=== PATIENT | female | born 1965 | race Two or more races ===

== ENCOUNTER 2016-06-09 09:03 | Emergency (ER) | payer BC ==
[~2016-06-09] VITALS: Ht 165.1 cm; Wt 111.1 kg
[2016-06-09 09:25] VITALS: BP 177/82
--- NOTE | 2016-06-09 09:46 | PHYS DOC ---
Past Medical History Past Medical History: Diabetes-Type II, High Cholesterol, Hypertension Past Surgical History: Tubal ligation Alcohol Use: None Drug Use: None Adult General Chief Complaint Chief Complaint: URINARY FREQUENCY HPI HPI Patient is a 51 year old female, with a history of diabetes, comes emergency room today with complaint of progressive "yeast infection" and dysuria over the past week. Patient states that she does get frequent infections. She denies antibiotic use within the past 30 days. She denies flank pain, pelvic pain, fevers, nausea or vomiting. She denies concerns for sexual transmitted diseases at this time. Review of Systems Review of Systems Constitutional: Denies fever or chills [] Eyes: Denies change in visual acuity, redness, or eye pain [] HENT: Denies nasal congestion or sore throat [] Respiratory: Denies cough or shortness of breath [] Cardiovascular: No additional information not addressed in HPI [] GI: Denies abdominal pain, nausea, vomiting, bloody stools or diarrhea [] : Denies dysuria or hematuria [] Musculoskeletal: Denies back pain or joint pain [] Integument: Denies rash or skin lesions [] Neurologic: Denies headache, focal weakness or sensory changes [] Endocrine: Denies polyuria or polydipsia [] Allergies Allergies Allergies Coded Allergies Type Severity Reaction Last Updated Verified No Known Drug Allergies 06/09/16 No Physical Exam Physical Exam Constitutional: Well developed, well nourished, no acute distress, non-toxic appearance. HENT: Normocephalic, atraumatic, bilateral external ears normal, oropharynx moist, no oral exudates, nose normal. [] Eyes: PERRLA, EOMI, conjunctiva normal, no discharge. [] Neck: Normal range of motion, no tenderness, supple, no stridor. [] Cardiovascular:Heart rate regular rhythm, no murmur [] Lungs & Thorax: Bilateral breath sounds clear to auscultation [] Abdomen: Bowel sounds normal, soft, no tenderness, no masses, no pulsatile masses. Skin: Warm, dry, no erythema, no rash. Back: No tenderness, no CVA tenderness. [] Extremities: No tenderness, no cyanosis, no clubbing, ROM intact, no edema. [] Neurologic: Alert and oriented X 3, normal motor function, normal sensory function, no focal deficits noted. [] Psychologic: Affect normal, judgement normal, mood normal. [] Current Patient Data Vital Signs Vital Signs Date Time Temp Pulse Resp B/P Pulse Ox O2 Delivery O2 Flow Rate FiO2 06/09/16 09:25 98.4 87 16 97 Room Air 98.4 Lab Values Laboratory Tests Test 06/09/16 09:40 Urine Collection Type Unknown Urine Color Yellow Urine Clarity Clear Urine pH 7.0 Urine Specific [place] 1.025 Urine Protein 30mg/dL (NEG-TRACE) Urine Glucose (UA) >=1000mg/dL (NEG) Urine Ketones (Stick) Negativemg/dL (NEG) Urine Blood Negative (NEG) Urine Nitrite Negative (NEG) Urine Bilirubin Negative (NEG) Urine Urobilinogen Dipstick 0.2mg/dL (0.2 mg/dL) Urine Leukocyte Esterase Moderate (NEG) Urine RBC 3-5/HPF (0-2) Urine WBC 20-40/HPF (0-4) Urine Squamous Epithelial Cells Mod/LPF Urine Bacteria Moderate/HPF (0-FEW) Urine Mucus Slight/LPF EKG EKG [] Radiology/Procedures Radiology/Procedures [] Course & Med Decision Making Course & Med Decision Making Pertinent Labs and Imaging studies reviewed. (See chart for details) [] Dragon Disclaimer Dragon Disclaimer This electronic medical record was generated, in whole or in part, using a voice recognition dictation system. Departure Departure Impression: Primary Impression: Urinary tract infection Additional Impression: Yeast vaginitis Disposition: 01 HOME, SELF-CARE Condition: GOOD Referrals: KATHARINE BROWN WIRE GALVANIZER (PCP) Patient Instructions: Diabetes, FAQs, Urinary Tract Infection, Ihar-js-Ivop, Vaginitis, Yycl-[id number] Additional Instructions: 1. Take the medication as prescribed. 2. Review the discharge instructions provided for self-care and reasons to return to the emergency department. 3. It is very important for you to establish a primary care doctor. Please use the pamphlet provided for assistance in finding one. Ideally, you should follow up with a new primary care doctor within the next 7-10 days. Scripts Phenazopyridine Hcl (Pyridium)200 Mg [id number] Mg PO TID dysuria #6 TAB Prov:ELVER RANDOLPH 06/09/16 Fluconazole (Diflucan)150 Mg Tablet1 Tab PO ONCE #1 TAB Ref 1 Prov:ELVER RANDOLPH 06/09/16 Nitrofurantoin Macrocrystal (Nitrofurantoin)100 Mg Capsule1 Cap PO BID #20 CAP Prov:ELVER RANDOLPH 06/09/16 Problem Qualifiers ELVER RANDOLPH Jun 09, 2016 09:46
[2016-06-09 09:52] LABS: BILIRUBIN,URINE NEGATIVE (NEG); GLUCOSE,URINE >=1000 mg/dL (NEG); NITRITE,URINE NEGATIVE (NEG); PROTEIN,URINE 30 mg/dL (NEG-TRACE); UROBILINOGEN,URINE 0.2 mg/dL (0.2 mg/dL)
[2016-06-09 10:01] LABS: BACTERIA,URINE MODERATE /HPF (0-FEW); SQUAMOUS EPITHELIAL CELL,UR MOD /LPF; WBC,URINE 20-40 /HPF (0-4)
[2016-06-09] MEDS ORDERED: PHEN-318 PO (10:24)
[2016-06-09] MEDS ORDERED: NITR100C PO (10:24)
[2016-06-09] MEDS ORDERED: FLUC150T PO (10:24)
== END 2016-06-09 10:30 | disposition home or self-care (01) ==
LOC: ER 09:03
DX: N39.0 Urinary tract infection, site not specified (principal); B37.3 Candidiasis of vulva and vagina; E11.9 Type 2 diabetes mellitus without complications; E78.00 Pure hypercholesterolemia, unspecified; I10 Essential (primary) hypertension
CPT/HCPCS: 81001; 87086; 99284

== ENCOUNTER → 2020-01-23 | Outpatient (CLI) | payer BC ==
[~2020-01-23] MED LIST: AMLO-186 PO; FLUC150T PO; INSU100C4 SQ; METF10007 PO; METO-239 PO; NITR100C PO; OLME5TAB4 PO; OMEP20TA8 PO; OXYB5TAB10 PO; PHEN-318 PO; TOPI25CA3 PO
== END ==
LOC: LAB 15:02
PROVIDERS: ATTEND Specialist
DX: Z01.812 Encounter for preprocedural laboratory examination (principal); Z20.828 Contact with and (suspected) exposure to other viral communicable diseases; N63.0 Unspecified lump in unspecified breast
CPT/HCPCS: U0003

== ENCOUNTER 2020-01-27 07:12 | Day surgery (SDC) | payer BC ==
[~2020-01-27] VITALS: Ht 162.6 cm; Wt 108.9 kg
--- NOTE | 2020-01-27 06:54 | PREOP HP ---
DATE OF SERVICE: HISTORY OF PRESENT ILLNESS: The patient is referred by Dr. Chavez because of the left breast mass. She has not noticed anything in her breast, but had a mammogram and then a sonogram, which showed a solid mass of the left breast at the 3 o'clock position about an inch or so from the areola margin. She otherwise has no problem with the breast whatsoever and has never had problems. PAST MEDICAL HISTORY: Shows normal childhood diseases. MEDICATIONS: She does take medication for hypertension and takes insulin and pills for diabetes. She also takes some medicine for depression and sometimes she takes sleeping medicine. ALLERGIES: SHE IS ALLERGIC TO SOME TYPE OF HIGH BLOOD PRESSURE MEDICINE, BUT SHE DOES NOT KNOW WHAT IT IS, IT APPARENTLY MADE HER COUGH. SHE, OTHERWISE, HAS NO ALLERGIES. FAMILY HISTORY: Noncontributory. SOCIAL HISTORY: Shows that she does not use illicit drugs, does not smoke and only drinks occasionally and not enough to be inebriated. She does this only socially. REVIEW OF SYSTEMS: Basically negative. PHYSICAL EXAMINATION: GENERAL: Shows an obese female in no acute distress. HEAD, EYES, NOSE AND THROAT: Grossly normal. CHEST: Clear bilaterally to auscultation. HEART: Negative with a rate of 72 beats per minute and was regular. She did have at the aortic area about a 2/6 systolic murmur, which was mid systolic. No other abnormalities were noted. BREASTS: Examination at both axillary areas was negative. The right breast was negative and the left breast did have about 1 cm lesion, which could be palpated lateral to the left breast areolar margin at the 3 o'clock position. I assume this is what is seen on sonogram, but we will confirm this before anything is done. ABDOMEN: Grossly negative. EXTREMITIES: Grossly normal. PELVIC: Not done. RECTAL: Not done. IMPRESSION: 1. Hypertension. 2. Diabetes. 3. Left breast mass. CASH DAWKINS MD DR: MEME/ricci JOB#: [id number] / [id number]
[~2020-01-27 07:12] MED LIST changes: -AMLO-186 PO; +HYDROmorphone 2 MG/ML VIAL IV PRN; -INSU100C4 SQ; +IV RINGERS,LACTATED 1000ML 1,000 ML IV SCH; +LIDOCAINE 1% PF 2 ML VIAL. ID PRN; -METF10007 PO; -METO-239 PO; +MORPHINE SULFATE 2 MG/ML VIAL. IV PRN; -OLME5TAB4 PO; -OMEP20TA8 PO; +ONDANSETRON PF 4 MG/2 ML VIAL. IV PRN; -OXYB5TAB10 PO; +PROCHLORPERAZINE 10 MG/2 ML VIAL. IV PRN; -TOPI25CA3 PO; +ceFAZolin SODIUM IV Push 1 GM VIAL. IVP PRN; +fentaNYL PF VIAL 100 MCG/2 ML VIAL IV PRN
[2020-01-27] MEDS ORDERED: AMLO-186 PO (07:42)
[2020-01-27] MEDS ORDERED: INSU100C4 SQ (07:42)
[2020-01-27] MEDS ORDERED: OXYB5TAB10 PO (07:42)
[2020-01-27] MEDS ORDERED: METO-239 PO (07:42)
[2020-01-27] MEDS ORDERED: METF10007 PO (07:42)
[2020-01-27] MEDS ORDERED: TOPI25CA3 PO (07:42)
[2020-01-27] MEDS ORDERED: OLME5TAB4 PO (07:42)
[2020-01-27] MEDS ORDERED: OMEP20TA8 PO (07:42)
[2020-01-27] MEDS ORDERED: INSULIN LISPRO 100 UNIT/ML 3ML VIAL for OP,RR ONLY. SQ PRN (08:00)
[2020-01-27 08:08] LABS: BASO % 1 % (0-3); EOS # 0.2 x10^3/uL (0.0-0.7); EOS % 4 % (0-3); HEMATOCRIT 37.7 % (36.0-47.0); HEMOGLOBIN 12.6 g/dL (12.0-15.5); LYMPH # 1.8 x10^3/uL (1.0-4.8); LYMPH % 37 % (24-48); MEAN CORPUSCULAR HEMOGLOBIN 29 pg (25-35); MEAN CORPUSCULAR HGB CONC 33 g/dL (31-37); MEAN CORPUSCULAR VOLUME 86 fL (79-100); MONO # 0.4 x10^3/uL (0.0-1.1); MONO % 8 % (0-9); NEUT # 2.5 x10^3/uL (1.8-7.7); NEUT % 52 % (31-73); PLATELET COUNT 251 x10^3/uL (140-400); RED CELL DISTRIBUTION WIDTH 14.5 % (11.5-14.5); WHITE BLOOD COUNT 4.9 x10^3/uL (4.0-11.0)
[2020-01-27 08:16] LABS: CALCIUM 9.3 mg/dL (8.5-10.1); GFR 57.8; POTASSIUM 3.8 mmol/L (3.5-5.1)
[2020-01-27 08:22] LABS: ALBUMIN 3.4 g/dL (3.4-5.0); ALBUMIN/GLOBULIN RATIO 0.9 (1.0-1.7); TOTAL BILIRUBIN 0.5 mg/dL (0.2-1.0); TOTAL PROTEIN 7.1 g/dL (6.4-8.2)
[2020-01-27] MEDS ORDERED: METHYLENE BLUE 0.5% 10ml AMPULE. ONE (08:39)
[2020-01-27] MEDS ORDERED: LIDOCAINE 2% PF 5 ML VIAL. ONE (09:03)
[2020-01-27] MEDS ORDERED: KETOROLAC 30 MG/ML VIAL. ONE (09:03)
[2020-01-27] MEDS ORDERED: SEVOFLURANE 61 TO 120 MINUTES. IH ONE (09:03)
[2020-01-27] MEDS ORDERED: PROPOFOL 10 MG/ML (20ML) VIAL. IV ONE (09:03)
[2020-01-27] MEDS ORDERED: ONDANSETRON PF 4 MG/2 ML VIAL. ONE (09:03)
[2020-01-27] MEDS ORDERED: DEXAMETHASONE SOD PHOS 4 MG/ML VIAL ONE (09:03)
--- NOTE | 2020-01-27 09:32 | PDOC ---
SURGICAL PROGRESS NOTE DATE: 01/27/20 TIME: 09:31 nO CHANGER IN DICTATED h&p Vital Signs Vital Signs Date Time Temp Pulse Resp B/P (MAP) Pulse Ox O2 Delivery O2 Flow Rate FiO2 01/27/20 07:47 97.3 62 147/74 99 97.3 01/27/20 07:44 20 Labs Laboratory Tests Test 01/27/20 07:55 White Blood Count 4.9 x10^3/uL (4.0-11.0) Red Blood Count 4.40 x10^6/uL (3.50-5.40) Hemoglobin 12.6 g/dL (12.0-15.5) Hematocrit 37.7 % (36.0-47.0) Mean Corpuscular Volume 86 fL (79-100) Mean Corpuscular Hemoglobin 29 pg (25-35) Mean Corpuscular Hemoglobin Concent 33 g/dL (31-37) Red Cell Distribution Width 14.5 % (11.5-14.5) Platelet Count 251 x10^3/uL (140-400) Neutrophils (%) (Auto) 52 % (31-73) Lymphocytes (%) (Auto) 37 % (24-48) Monocytes (%) (Auto) 8 % (0-9) Eosinophils (%) (Auto) 4 % (0-3) Basophils (%) (Auto) 1 % (0-3) Neutrophils # (Auto) 2.5 x10^3/uL (1.8-7.7) Lymphocytes # (Auto) 1.8 x10^3/uL (1.0-4.8) Monocytes # (Auto) 0.4 x10^3/uL (0.0-1.1) Eosinophils # (Auto) 0.2 x10^3/uL (0.0-0.7) Basophils # (Auto) 0.0 x10^3/uL (0.0-0.2) Prothrombin Time 12.0 SEC (11.7-14.0) Prothromb Time International Ratio 0.9 (0.8-1.1) Activated Partial Thromboplast Time 25 SEC (24-38) Sodium Level 141 mmol/L (136-145) Potassium Level 3.8 mmol/L (3.5-5.1) Chloride Level 103 mmol/L (98-107) Carbon Dioxide Level 29 mmol/L (21-32) Anion Gap 9 (6-14) Blood Urea Nitrogen 21 mg/dL (7-20) Creatinine 1.0 mg/dL (0.6-1.0) Estimated GFR (Cockcroft-Gault) 57.8 BUN/Creatinine Ratio 21 (6-20) Glucose Level 145 mg/dL (70-99) Calcium Level 9.3 mg/dL (8.5-10.1) Total Bilirubin 0.5 mg/dL (0.2-1.0) Aspartate Amino Transf (AST/SGOT) 14 U/L (15-37) Alanine Aminotransferase (ALT/SGPT) 24 U/L (14-59) Alkaline Phosphatase 65 U/L (46-116) Total Protein 7.1 g/dL (6.4-8.2) Albumin 3.4 g/dL (3.4-5.0) Albumin/Globulin Ratio 0.9 (1.0-1.7) Laboratory Tests Test 01/27/20 07:55 White Blood Count 4.9 x10^3/uL (4.0-11.0) Red Blood Count 4.40 x10^6/uL (3.50-5.40) Hemoglobin 12.6 g/dL (12.0-15.5) Hematocrit 37.7 % (36.0-47.0) Mean Corpuscular Volume 86 fL (79-100) Mean Corpuscular Hemoglobin 29 pg (25-35) Mean Corpuscular Hemoglobin Concent 33 g/dL (31-37) Red Cell Distribution Width 14.5 % (11.5-14.5) Platelet Count 251 x10^3/uL (140-400) Neutrophils (%) (Auto) 52 % (31-73) Lymphocytes (%) (Auto) 37 % (24-48) Monocytes (%) (Auto) 8 % (0-9) Eosinophils (%) (Auto) 4 % (0-3) Basophils (%) (Auto) 1 % (0-3) Neutrophils # (Auto) 2.5 x10^3/uL (1.8-7.7) Lymphocytes # (Auto) 1.8 x10^3/uL (1.0-4.8) Monocytes # (Auto) 0.4 x10^3/uL (0.0-1.1) Eosinophils # (Auto) 0.2 x10^3/uL (0.0-0.7) Basophils # (Auto) 0.0 x10^3/uL (0.0-0.2) Prothrombin Time 12.0 SEC (11.7-14.0) Prothromb Time International Ratio 0.9 (0.8-1.1) Activated Partial Thromboplast Time 25 SEC (24-38) Sodium Level 141 mmol/L (136-145) Potassium Level 3.8 mmol/L (3.5-5.1) Chloride Level 103 mmol/L (98-107) Carbon Dioxide Level 29 mmol/L (21-32) Anion Gap 9 (6-14) Blood Urea Nitrogen 21 mg/dL (7-20) Creatinine 1.0 mg/dL (0.6-1.0) Estimated GFR (Cockcroft-Gault) 57.8 BUN/Creatinine Ratio 21 (6-20) Glucose Level 145 mg/dL (70-99) Calcium Level 9.3 mg/dL (8.5-10.1) Total Bilirubin 0.5 mg/dL (0.2-1.0) Aspartate Amino Transf (AST/SGOT) 14 U/L (15-37) Alanine Aminotransferase (ALT/SGPT) 24 U/L (14-59) Alkaline Phosphatase 65 U/L (46-116) Total Protein 7.1 g/dL (6.4-8.2) Albumin 3.4 g/dL (3.4-5.0) Albumin/Globulin Ratio 0.9 (1.0-1.7) Justicifation of Admission Dx: Justifications for Admission: Justification of Admission Dx: Yes CASH DAWKINS MD Jan 27, 2020 09:32
--- NOTE | 2020-01-27 09:35 | PDOC ---
SURGICAL PROGRESS NOTE DATE: 01/27/20 TIME: 09:32 Op Note: Surgeon.....................................Dawkins Pre op dig..................................bert left breast Post op diag...............................mass left breast Anesthesi..................................general Procedure.................................excision left breast mass Blood loss..................................4cc Fluids.......................................see anesthesia sheet Drains......................................none Condition..................................satisfactory Vital Signs Vital Signs Date Time Temp Pulse Resp B/P (MAP) Pulse Ox O2 Delivery O2 Flow Rate FiO2 01/27/20 07:47 97.3 62 147/74 99 97.3 01/27/20 07:44 20 Labs Laboratory Tests Test 01/27/20 07:55 White Blood Count 4.9 x10^3/uL (4.0-11.0) Red Blood Count 4.40 x10^6/uL (3.50-5.40) Hemoglobin 12.6 g/dL (12.0-15.5) Hematocrit 37.7 % (36.0-47.0) Mean Corpuscular Volume 86 fL (79-100) Mean Corpuscular Hemoglobin 29 pg (25-35) Mean Corpuscular Hemoglobin Concent 33 g/dL (31-37) Red Cell Distribution Width 14.5 % (11.5-14.5) Platelet Count 251 x10^3/uL (140-400) Neutrophils (%) (Auto) 52 % (31-73) Lymphocytes (%) (Auto) 37 % (24-48) Monocytes (%) (Auto) 8 % (0-9) Eosinophils (%) (Auto) 4 % (0-3) Basophils (%) (Auto) 1 % (0-3) Neutrophils # (Auto) 2.5 x10^3/uL (1.8-7.7) Lymphocytes # (Auto) 1.8 x10^3/uL (1.0-4.8) Monocytes # (Auto) 0.4 x10^3/uL (0.0-1.1) Eosinophils # (Auto) 0.2 x10^3/uL (0.0-0.7) Basophils # (Auto) 0.0 x10^3/uL (0.0-0.2) Prothrombin Time 12.0 SEC (11.7-14.0) Prothromb Time International Ratio 0.9 (0.8-1.1) Activated Partial Thromboplast Time 25 SEC (24-38) Sodium Level 141 mmol/L (136-145) Potassium Level 3.8 mmol/L (3.5-5.1) Chloride Level 103 mmol/L (98-107) Carbon Dioxide Level 29 mmol/L (21-32) Anion Gap 9 (6-14) Blood Urea Nitrogen 21 mg/dL (7-20) Creatinine 1.0 mg/dL (0.6-1.0) Estimated GFR (Cockcroft-Gault) 57.8 BUN/Creatinine Ratio 21 (6-20) Glucose Level 145 mg/dL (70-99) Calcium Level 9.3 mg/dL (8.5-10.1) Total Bilirubin 0.5 mg/dL (0.2-1.0) Aspartate Amino Transf (AST/SGOT) 14 U/L (15-37) Alanine Aminotransferase (ALT/SGPT) 24 U/L (14-59) Alkaline Phosphatase 65 U/L (46-116) Total Protein 7.1 g/dL (6.4-8.2) Albumin 3.4 g/dL (3.4-5.0) Albumin/Globulin Ratio 0.9 (1.0-1.7) Laboratory Tests Test 01/27/20 07:55 White Blood Count 4.9 x10^3/uL (4.0-11.0) Red Blood Count 4.40 x10^6/uL (3.50-5.40) Hemoglobin 12.6 g/dL (12.0-15.5) Hematocrit 37.7 % (36.0-47.0) Mean Corpuscular Volume 86 fL (79-100) Mean Corpuscular Hemoglobin 29 pg (25-35) Mean Corpuscular Hemoglobin Concent 33 g/dL (31-37) Red Cell Distribution Width 14.5 % (11.5-14.5) Platelet Count 251 x10^3/uL (140-400) Neutrophils (%) (Auto) 52 % (31-73) Lymphocytes (%) (Auto) 37 % (24-48) Monocytes (%) (Auto) 8 % (0-9) Eosinophils (%) (Auto) 4 % (0-3) Basophils (%) (Auto) 1 % (0-3) Neutrophils # (Auto) 2.5 x10^3/uL (1.8-7.7) Lymphocytes # (Auto) 1.8 x10^3/uL (1.0-4.8) Monocytes # (Auto) 0.4 x10^3/uL (0.0-1.1) Eosinophils # (Auto) 0.2 x10^3/uL (0.0-0.7) Basophils # (Auto) 0.0 x10^3/uL (0.0-0.2) Prothrombin Time 12.0 SEC (11.7-14.0) Prothromb Time International Ratio 0.9 (0.8-1.1) Activated Partial Thromboplast Time 25 SEC (24-38) Sodium Level 141 mmol/L (136-145) Potassium Level 3.8 mmol/L (3.5-5.1) Chloride Level 103 mmol/L (98-107) Carbon Dioxide Level 29 mmol/L (21-32) Anion Gap 9 (6-14) Blood Urea Nitrogen 21 mg/dL (7-20) Creatinine 1.0 mg/dL (0.6-1.0) Estimated GFR (Cockcroft-Gault) 57.8 BUN/Creatinine Ratio 21 (6-20) Glucose Level 145 mg/dL (70-99) Calcium Level 9.3 mg/dL (8.5-10.1) Total Bilirubin 0.5 mg/dL (0.2-1.0) Aspartate Amino Transf (AST/SGOT) 14 U/L (15-37) Alanine Aminotransferase (ALT/SGPT) 24 U/L (14-59) Alkaline Phosphatase 65 U/L (46-116) Total Protein 7.1 g/dL (6.4-8.2) Albumin 3.4 g/dL (3.4-5.0) Albumin/Globulin Ratio 0.9 (1.0-1.7) Justicifation of Admission Dx: Justifications for Admission: Justification of Admission Dx: Yes CASH DAWKINS MD Jan 27, 2020 09:35
[2020-01-27] MEDS ORDERED: ePHEDrine PF IN SALINE 50 MG/10 ML SYRINGE. IV ONE (09:48)
--- NOTE | 2020-01-27 10:40 | DISCH ---
DISCHARGE INSTRUCTIONS Condition on Discharge Condition on Discharge: Stable Activity After Discharge Activity Instructions for Disc: No restrictions Diet after Discharge Additional Diet Restrictions: as pre op Wound Incision Care Other wound/incision instructi: change dressin prn. May leave off after 72 hours. Follow-Up Follow up with: Call and make appt to see me in 14 days CASH DAWKINS MD Jan 27, 2020 10:39
[2020-01-27] MEDS ORDERED: fentaNYL PF VIAL 100 MCG/2 ML VIAL ONE (10:51)
[2020-01-27] MEDS ORDERED: hydrALAZINE 20 MG/ML VIAL. ONE (11:08)
[2020-01-27] MEDS ORDERED: hydrALAZINE 20 MG/ML VIAL. IVP ONE (11:15)
[2020-01-27] MEDS ORDERED: hydrALAZINE 20 MG/ML VIAL. IVP PRN (11:15)
[2020-01-27 11:30] VITALS: BP 161/91
--- NOTE | 2020-01-27 15:42 | OP ---
DATE OF SURGERY: 01/27/2020 SURGEON: Robert Dawkins MD PREOPERATIVE DIAGNOSIS: Mass of the left breast. POSTOPERATIVE DIAGNOSIS: Mass of the left breast. ANESTHESIA: General. PROCEDURE: Excision mass, left breast. TECHNIQUE: Under general anesthesia, the patient was properly prepped and draped in routine fashion. The lesion being at about the 3 o'clock position at about an inch from the areola margin, we made a circumareolar incision in that area at the lateral portion of the left breast. We did this with a 15 blade and went through the skin and into the subcutaneous. Using Sharath retractors and then Best's, we slowly got down to the mass. The mass was about a centimeter in size and tissue around it was pulled up and using cautery. We simply went completely around the lesion taken tissue, breast tissue and fatty tissue around it and slowly excised it. There was one brisk bleeder, which was cauterized and then suture ligated with 4-0 Vicryl. The specimen was sent to the lab. The resultant defect was inspected. There was no further bleeding. The deeper tissues were approximated with interrupted 4-0 Vicryl and the skin was closed using a subcuticular 5-0 Vicryl. Sterile dressing was applied and the procedure was terminated. The blood loss during the procedure was less than 3 mL. Fluids given can be obtained from the anesthesia sheet. No drains were used. Condition of the patient is satisfactory as she has returned to the recovery room. ROBERT DAWKINS MD DR: MEME/nts JOB#: [id number] / [id number]
--- NOTE | 2020-01-28 09:23 | RAD ---
Examination: BREAST LEFT History: Reason: DR SUTTON MARKED PALPABLE LT BRESAT MASS FOR SURGICAL EXCISION / Comparison/Correlation: 01/14/2020 Limited left breast ultrasound examination performed at diagnostic imaging centers Findings: Limited left breast ultrasound exam was performed. At the left breast 3:00 region 5 cm from the nipple, there is a small heterogeneously hypoechoic mass lesion which is unchanged compared to the previous exam. The reported palpable abnormality the patient is experiencing at the left breast 3:00 region corresponds to this finding upon physical exam and myself. Impression: No change in the patient's known mass lesion at the left breast 3:00 region. This mass corresponds to the palpable abnormality. Surgical excision was scheduled immediately after this exam was performed. Electronically signed by: Dami Sutton MD (01/28/2020 9:20 AM) [id number]
--- NOTE | 2020-01-29 19:11 | PATHOLOGY ---
[facility] Accession Number: [id number] . 01 Material submitted: . breast - LEFT BREAST MASS. Modifiers: left . 01 Clinical history: . LEFT BREAST MASS . 02 Diagnosis: Breast tissue, left breast mass excision: - Invasive ductal carcinoma, histologic grade 2. See comment. - Ductal carcinoma in situ, high-grade, cribriform type, focal. (JPM:beto; 01/29/2020) QMS 01/29/2020 1821 Local . 02 Comment: Sections of the left breast mass excision reveal an invasive ductal carcinoma. The tumor shows moderate tubule formation. Tumor cells show moderate to marked nuclear pleomorphism. There are foci within the tumor showing 2-3 mitotic figures per high power field. Adjacent to the tumor, there is focal high grade ductal carcinoma in situ of cribriform type. There are calcifications present within the DCIS and focally within invasive carcinoma. The invasive tumor measures up to 1.1 cm in greatest dimension on the glass slide. There is no lymphovascular tumor invasion. Tumor focally is very close (less than 1 mm) to an inked margin of excision. Breast prognostic studies will be obtained on block A3, the results of which will be reported separately. The case is also examined by Dr. Weiss, who concurs with the diagnosis. (JPM:beto; 01/29/2020) . 02 Electronically signed: . Jozef Cardona MD, Pathologist NPI- [id number] . 01 Gross description: . Received in formalin labeled "Vargas, Cierra, left breast mass" is a portion of yellow-trevino lobulated fibroadipose tissue weighing 2 g and measuring 2.6 x 2.1 x 1.2 cm. The specimen is received unoriented. The external surface is inked entirely black. The specimen is serially sectioned to reveal a trevino-white firm mass measuring 1.2 x 0.9 x 0.9 cm. The mass abuts the inked margin. The uninvolved tissue is yellow-trevino and lobulated. A biopsy site is not grossly identified. The specimen is submitted entirely as follows: A1 first slice, perpendicular sections A2-A4 middle of specimen A5 last slice, perpendicular sections The specimen is removed from the patient at 1008 and placed in formalin at 1009 on 01/27/2020. The specimen is removed from formalin at 1850 on 01/28/2020. ([facility]; 01/28/2020) [facility] 01/28/2020 0825 Local . 02 Pathologist provided ICD-10: C50.912, D05.12 . 02 CPT . 233198 Specimen Comment: A courtesy copy of this report has been sent to [phone], [phone] Specimen Comment: [id number] Specimen Comment: Report sent to / DR GARZA Performed at: 01 [facility] [address] [facility] [address], [place] [id number] MD Bhavin Weiss MD Phone: [phone] Performed at: 02 [facility] [address] [place], [place] [id number] MD Jozef Cardona MD Phone: [phone]
== END 2020-01-27 12:00 | disposition home or self-care (01) ==
LOC: US 07:12
PROVIDERS: ATTEND Specialist
DX: C50.412 Malignant neoplasm of upper-outer quadrant of left female breast (principal); Z79.01 Long term (current) use of anticoagulants; I10 Essential (primary) hypertension; E11.9 Type 2 diabetes mellitus without complications; F32.9 Major depressive disorder, single episode, unspecified; Z88.8 Allergy status to other drugs, medicaments and biological substances; Z79.899 Other long term (current) drug therapy; Z79.84 Long term (current) use of oral hypoglycemic drugs
CPT/HCPCS: 19120; 36415; 76641; 80053; 82962; 85025; 85610; 85730; A7015; J0360; J0690; J1100; J1885; J2405; J2704; J3010; J7120; Q9968

== ENCOUNTER → 2020-02-25 | Outpatient (CLI) | payer BC ==
[2020-01-27 11:30] VITALS: BP 161/91
[~2020-02-25] MED LIST changes: +AMLO-186 PO; -HYDROmorphone 2 MG/ML VIAL IV PRN; +INSU100C4 SQ; -IV RINGERS,LACTATED 1000ML 1,000 ML IV SCH; -LIDOCAINE 1% PF 2 ML VIAL. ID PRN; +METF10007 PO; +METO-239 PO; -MORPHINE SULFATE 2 MG/ML VIAL. IV PRN; +OLME5TAB4 PO; +OMEP20TA8 PO; -ONDANSETRON PF 4 MG/2 ML VIAL. IV PRN; +OXYB5TAB10 PO; -PROCHLORPERAZINE 10 MG/2 ML VIAL. IV PRN; +TOPI25CA3 PO; +TRAZ-118 PO; -ceFAZolin SODIUM IV Push 1 GM VIAL. IVP PRN; -fentaNYL PF VIAL 100 MCG/2 ML VIAL IV PRN
[2020-02-25 11:35] LABS: BASO # 0.1 x10^3/uL (0.0-0.2); BASO % 1 % (0-3); EOS # 1.2 x10^3/uL (0.0-0.7); EOS % 17 % (0-3); HEMATOCRIT 38.5 % (36.0-47.0); HEMOGLOBIN 13.2 g/dL (12.0-15.5); LYMPH # 1.8 x10^3/uL (1.0-4.8); LYMPH % 26 % (24-48); MEAN CORPUSCULAR HEMOGLOBIN 29 pg (25-35); MEAN CORPUSCULAR HGB CONC 34 g/dL (31-37); MEAN CORPUSCULAR VOLUME 85 fL (79-100); MONO # 0.4 x10^3/uL (0.0-1.1); MONO % 6 % (0-9); NEUT # 3.5 x10^3/uL (1.8-7.7); NEUT % 51 % (31-73); PLATELET COUNT 300 x10^3/uL (140-400); RED BLOOD COUNT 4.54 x10^6/uL (3.50-5.40); RED CELL DISTRIBUTION WIDTH 14.9 % (11.5-14.5); WHITE BLOOD COUNT 6.9 x10^3/uL (4.0-11.0)
[2020-02-25 11:40] LABS: ALBUMIN 3.4 g/dL (3.4-5.0); ALBUMIN/GLOBULIN RATIO 0.9 (1.0-1.7); CALCIUM 8.9 mg/dL (8.5-10.1); CREATININE 0.9 mg/dL (0.6-1.0); POTASSIUM 3.9 mmol/L (3.5-5.1); TOTAL BILIRUBIN 0.6 mg/dL (0.2-1.0); TOTAL PROTEIN 7.2 g/dL (6.4-8.2)
[2020-02-25 11:46] LABS: PROTHROMBIN TIME PATIENT 12.7 SEC (11.7-14.0)
[2020-02-25 12:49] LABS: % ATYL 4 % (0-0); % BANDS 12 % (0-9); % BASOS 1 % (0-3); % EOS 15 % (0-5); % MONOS 6 % (0-10)
[2020-02-25 12:50] LABS: % LYMPHS 30 % (24-48); % SEGS 32 % (35-66); PLT ESTIMATE ADEQUATE (ADEQUATE)
[2020-02-25 12:52] LABS: ANISOCYTOSIS SLIGHT
== END ==
LOC: SURGPAT 10:53
PROVIDERS: ATTEND Specialist
DX: Z01.812 Encounter for preprocedural laboratory examination (principal); N63.0 Unspecified lump in unspecified breast; R79.89 Other specified abnormal findings of blood chemistry; Z20.828 Contact with and (suspected) exposure to other viral communicable diseases
CPT/HCPCS: 80053; 85007; 85025; 85610; U0003

== ENCOUNTER 2020-03-01 07:02 | Day surgery (SDC) | payer BC ==
[~2020-03-01 07:02] MED LIST changes: +HYDROmorphone 2 MG/ML VIAL IV PRN; +IV RINGERS,LACTATED 1000ML 1,000 ML IV SCH; +LIDOCAINE 1% PF 2 ML VIAL. ID PRN; +MORPHINE SULFATE 2 MG/ML VIAL. IV PRN; +ONDANSETRON PF 4 MG/2 ML VIAL. IV PRN; +PROCHLORPERAZINE 10 MG/2 ML VIAL. IV PRN; +ceFAZolin SODIUM IV Push 1 GM VIAL. IVP PRN; +fentaNYL PF VIAL 100 MCG/2 ML VIAL IV PRN
[2020-03-01] MEDS ORDERED: ISOSULFAN BLUE 1% 50 MG/5 ML VIAL. SQ ONE (07:25)
[2020-03-01] MEDS ORDERED: INSULIN LISPRO 100 UNIT/ML 3ML VIAL for OP,RR ONLY. SQ PRN (09:00)
[2020-03-01] MEDS ORDERED: fentaNYL PF VIAL 100 MCG/2 ML VIAL ONE ×2 (09:12→12:37)
[2020-03-01] MEDS ORDERED: PROPOFOL 10 MG/ML (20ML) VIAL. IV ONE (09:12)
[2020-03-01] MEDS ORDERED: LIDOCAINE 2% PF 5 ML VIAL. ONE (09:12)
[2020-03-01] MEDS ORDERED: SUCCINYLCHOLINE 200 MG/10 ML VIAL. ONE (09:12)
[2020-03-01] MEDS ORDERED: ROCURONIUM 50 MG/5 ML VIAL. ONE (09:12)
--- NOTE | 2020-03-01 10:12 | PDOC ---
SURGICAL PROGRESS NOTE DATE: 03/01/20 TIME: 10:12 No change in dictated H&P. Vital Signs Vital Signs Date Time Temp Pulse Resp B/P (MAP) Pulse Ox O2 Delivery O2 Flow Rate FiO2 03/01/20 08:03 97 55 16 97 97.0 03/01/20 07:57 158/84 Room Air Labs Laboratory Tests Test 03/01/20 07:49 03/01/20 09:27 03/01/20 10:05 Glucose (Fingerstick) 112 mg/dL (70-99) 89 mg/dL (70-99) 88 mg/dL (70-99) Laboratory Tests Test 03/01/20 07:49 03/01/20 09:27 03/01/20 10:05 Glucose (Fingerstick) 112 mg/dL (70-99) 89 mg/dL (70-99) 88 mg/dL (70-99) Justicifation of Admission Dx: Justifications for Admission: Justification of Admission Dx: Yes CASH DAWKINS MD Mar 01, 2020 10:12
--- NOTE | 2020-03-01 10:15 | PDOC ---
SURGICAL PROGRESS NOTE DATE: 03/01/20 TIME: 10:12 Op Note: Surgeon................................................Gagan Pre op diag............................................CA Left breast Post op diag..........................................same Anesthesia............................................general Procedure.............................................left partial mastectomy and left axilla sentinel node biopsy Drains..................................................none Blood loss.............................................15cc Fluids...................................................see anesthesia sheet Condition................................................satisfaction Vital Signs Vital Signs Date Time Temp Pulse Resp B/P (MAP) Pulse Ox O2 Delivery O2 Flow Rate FiO2 03/01/20 08:03 97 55 16 97 97.0 03/01/20 07:57 158/84 Room Air Labs Laboratory Tests Test 03/01/20 07:49 03/01/20 09:27 03/01/20 10:05 Glucose (Fingerstick) 112 mg/dL (70-99) 89 mg/dL (70-99) 88 mg/dL (70-99) Laboratory Tests Test 03/01/20 07:49 03/01/20 09:27 03/01/20 10:05 Glucose (Fingerstick) 112 mg/dL (70-99) 89 mg/dL (70-99) 88 mg/dL (70-99) Justicifation of Admission Dx: Justifications for Admission: Justification of Admission Dx: Yes CASH DAWKINS MD Mar 01, 2020 10:15
[2020-03-01] MEDS ORDERED: ONDANSETRON PF 4 MG/2 ML VIAL. ONE (10:31)
[2020-03-01] MEDS ORDERED: DEXAMETHASONE SOD PHOS 4 MG/ML VIAL ONE (10:31)
[2020-03-01] MEDS ORDERED: DESFLURANE 61 TO 120 MINUTES IH ONE (10:32)
--- NOTE | 2020-03-01 12:25 | DISCH ---
DISCHARGE INSTRUCTIONS Condition on Discharge Condition on Discharge: Stable Activity After Discharge Activity Instructions for Disc: No restrictions, Activity as tolerated Diet after Discharge Additional Diet Restrictions: as pre op Wound Incision Care Other wound/incision instructi: change dressing prn..keep wound dry 72 hours Follow-Up Follow up with: call and make appt to see me in 72 hours. CASH DAWKINS MD Mar 01, 2020 12:25
[2020-03-01] MEDS ORDERED: HYDROcodone/APAP 5/325MG 1 TAB TABLET PO ONE (12:30)
[2020-03-01] MEDS: fentaNYL PF VIAL 100 MCG/2 ML VIAL IV PRN ×2 (12:39→12:48)
--- NOTE | 2020-03-01 13:52 | RAD ---
Examination: Left breast radiopharmaceutical injection for sentinel node mapping. INDICATION: 55-year-old woman with recent diagnosis of left breast cancer on excisional biopsy of a palpable lump in the lateral periareolar region. Radiopharmaceutical injection requested for sentinel node mapping. COMPARISON: Left mammogram of 11/19/2019, left breast ultrasound of 01/14/2020 and 01/27/2020. TECHNIQUE AND FINDINGS: Informed consent was obtained and an appropriate procedural pause observed. The surgical incision around the lateral aspect of the periareolar left breast was identified and a single hypodermal periareolar injection lateral to the incision site in the anterior upper outer quadrant left breast was performed, delivering 1000 uCi of technetium labeled Tilmanocept radiopharmaceutical 9:15 AM on 03/01/2020. The skin prior to injection was prepped with povidone iodine swab and anesthetized with freeze spray. IMPRESSION: Uncomplicated left breast radiopharmaceutical injection for sentinel node mapping. Electronically signed by: Tiffanie Garg MD (03/01/2020 1:48 PM) [id number]
--- NOTE | 2020-03-01 20:34 | OP ---
DATE OF SURGERY: 03/01/2020 SURGEON: Robert Dawkins M.D. PREOPERATIVE DIAGNOSIS: Biopsy-proven carcinoma of the left breast. POSTOPERATIVE DIAGNOSIS: Biopsy-proven carcinoma of the left breast. ANESTHESIA: General. PROCEDURE: Left sentinel node biopsy and left partial mastectomy. TECHNIQUE: Under general anesthesia, the patient was properly prepped and draped in a routine fashion. The sentinel node biopsy was done first. The patient was properly prepped and draped in a routine fashion, and the scope was placed in the left axilla and the counter was noted at a particular spot. We made an incision following the skin lines over that area about an inch in length. This was carried through the skin with a 15-blade. We then slowly went down into the area, placed the scope in there again and found more and more and higher frequency sounds to let us know we were getting close to the node that was in fact up taking of the radioactive material. We slowly got down to where I could be palpate it, spread with clamps around it, and grabbed the tissue around it. We pulled the node up with the tissue around it and used cautery to divide it from the surrounding structures. We then placed the counter on no and get the highest pitch of all. We knew we had the sentinel node, and this was sent to the lab. I talked to the pathologist. He felt that a frozen section would not be a 100% and we were not prepared to do a lymph node dissection at the time as we had not talked to the patient about this and thought it would be better since she had questions to not proceed without absolute definite indication for the procedure. As such, a frozen section was not done. The resultant defect was irrigated with saline and deeper tissues were approximated in layers and interrupted with 4-0 Vicryl and the skin was closed with continuous 5-0 subcuticular suture of Vicryl. Next, the breast was addressed. The old incision around the circumareolar incision was noted and we made an incision through this. There was scar tissue there and all the tissue at the previous biopsy site around it could be palpated. We simply went around this area. We did spread and we were able to get around all of the tissue, got normal breast tissue and fat tissue, and had a large portion of the breast removed where the previous biopsy site. We did most of this with cautery as the bleeding was relatively minimum once we got away from the surgical site and into the tissues around it. We got all of the tissue around it that we could palpate and therefore thought we had done a good partial mastectomy. As such, the resultant defect was inspected, irrigated with saline, and 3-0 Vicryl interrupted was used to close the deeper structures and breast tissue. A 4-0 Vicryl was used to close the most superficial areas and 5-0 Vicryl was used to close the skin. We had a good cosmetic result, though she was informed preoperatively with full knowledge she and her daughter that there may be indentation at the surgical site. She fully understood that and it was not important to her. We did not use a drain as the wound was closed. We applied appropriate dressing. The procedure was now terminated. The blood loss was about 10-15 mL. Fluids given can be obtained from the anesthesia sheet. No drains were used and the condition of the patient was satisfactory as she was returned to the recovery room. ROBERT DAWKINS MD DR: MEME/nts JOB#: [id number] / [id number]
--- NOTE | 2020-03-04 18:54 | PATHOLOGY ---
[facility] Accession Number: [id number] . 01 Material submitted: . PART A: lymph node - EXCISION OF LEFT AXILLA, SENTINEL LYMPH NODE, LEFT. Modifiers: left, axilla PART B: breast - LEFT BREAST MASS. Modifiers: left . 01 Clinical history: . CANCER, LEFT BREAST MASS . 02 Diagnosis: A. Lymph node and adipose tissue, left axilla sentinel lymph node excision: - Negative for tumor (0/1). . B. Breast tissue, left partial mastectomy: - Previous biopsy site showing focal coagulative changes, fat necrosis, hemorrhage, reactive fibrosis, chronic inflammation, and foreign body giant cell and suture granulomatous reaction. - No residual invasive ductal carcinoma identified. - Inked margins of excision free of neoplasm. - Fibrocystic changes, focal. (JPM:pit 03/04/2020) [facility] 03/04/2020 1224 Local . 02 Comment: The sentinel lymph node is examined at multiple levels. An immunoperoxidase stain for AE1/AE3 is also obtained on the sentinel lymph node and yields the following results: . AE1/AE3 (A1): Negative for tumor. . The partial mastectomy is submitted in entirety for histologic evaluation. There are previous biopsy site changes. There is no residual invasive ductal carcinoma. (JPM:pit 03/04/2020) . Special stain performed: Immunoperoxidase stain for AE1/AE3 on A1 . 02 Electronically signed: . Jozef Cardona MD, Pathologist NPI- [id number] . 01 Gross description: . A. The specimen is received in formalin, labeled "Vargas, Cierra, sentinel node left axilla" and consists of yellow lobulated tissue measuring 3.4 x 1.7 x 0.8 cm. Present within is a lymph node measuring 1.2 x 1.0 cm showing pink-trevino to partially fat replaced cut surfaces. The lymph node is submitted entirely in A1 and the rest of the tissue in A2. . B. The specimen is received in formalin, labeled "Vargas, Cierra, left breast mass" and consists of an unoriented segment of yellow orange fibroadipose tissue measuring 4.5 x 4.5 x 3.2 cm. It is inked black and sectioned to reveal previous biopsy changes/fat necrosis measuring 2.7 x 2.5 cm which abuts the inked surface. A distinct mass is not identified. The specimen is entirely submitted in B1-B16. The specimen was obtained on 03/01/2020 with the time in formalin at 11:36 AM. The time out of formalin is 11:50 PM on 03/02/2020. (SDY; 03/02/2020) SYU/SYU 03/04/2020 1220 Local . 02 Pathologist provided ICD-10: C50.912, N60.32, N61.0, N64.1, N60.12 . 02 CPT . 375292, 201532, [id number] Specimen Comment: A courtesy copy of this report has been sent to [phone] Specimen Comment: [id number] Specimen Comment: Report sent to / DR GARZA Performed at: 01 [facility] [address] [facility] [address] [facility] [address], [place] [id number] MD Bhavin Weiss MD Phone: [phone] Performed at: 02 [facility] [address] [place], [place] [id number] MD Jozef Cardona MD Phone: [phone]
== END 2020-03-01 14:05 | disposition home or self-care (01) ==
LOC: SURG 07:02
PROVIDERS: ATTEND Specialist
DX: C50.912 Malignant neoplasm of unspecified site of left female breast (principal); N60.12 Diffuse cystic mastopathy of left breast; I10 Essential (primary) hypertension; E78.00 Pure hypercholesterolemia, unspecified; K21.9 Gastro-esophageal reflux disease without esophagitis; E66.9 Obesity, unspecified; E11.9 Type 2 diabetes mellitus without complications; F32.9 Major depressive disorder, single episode, unspecified; Z98.890 Other specified postprocedural states; Z79.899 Other long term (current) drug therapy; Z79.84 Long term (current) use of oral hypoglycemic drugs; Z88.8 Allergy status to other drugs, medicaments and biological substances
CPT/HCPCS: 19301; 38792; 82962; 88307; 88342; 96374; A9520; J0330; J0690; J1100; J2405; J2704; J3010; J7120; Q9968

== ENCOUNTER → 2021-02-07 | Day surgery (SDC) | payer BC ==
[~2021-02-07] VITALS: Ht 162.6 cm; Wt 106.0 kg
[~2021-02-07] MED LIST changes: +DULA1.5P SQ; -HYDROmorphone 2 MG/ML VIAL IV PRN; -IV RINGERS,LACTATED 1000ML 1,000 ML IV SCH; -LIDOCAINE 1% PF 2 ML VIAL. ID PRN; +LIDOCAINE 1%/EPI 1:100,000 20 ML VIAL. INJ ONE; +METHYLENE BLUE 0.5% 10ml AMPULE. IJ ONE; -MORPHINE SULFATE 2 MG/ML VIAL. IV PRN; -ONDANSETRON PF 4 MG/2 ML VIAL. IV PRN; -PROCHLORPERAZINE 10 MG/2 ML VIAL. IV PRN; -TOPI25CA3 PO; +TOPI25CA7 PO; -ceFAZolin SODIUM IV Push 1 GM VIAL. IVP PRN; -fentaNYL PF VIAL 100 MCG/2 ML VIAL IV PRN
--- NOTE | 2021-02-07 09:19 | PREOP HP ---
DATE OF SERVICE: 02/07/2021 HISTORY OF PRESENT ILLNESS: The patient is well known to me as she had cancer of the left breast, which was treated by partial mastectomy and radiation. She has done well since. Recent mammogram was negative. She has noted now for a few weeks a mass of the right abdominal wall and she is referred for that. PAST MEDICAL HISTORY: Shows normal childhood diseases. She takes medicine for hypertension and takes insulin for diabetes and also takes medicine for depression and some sleeping medicine. She also takes pain medicine, although mass is not painful. She states to be allergic to some high blood pressure medicines, not sure what that is causing her to cough. FAMILY HISTORY: Noncontributory. SOCIAL HISTORY: She does not use illicit drugs, smoke or drink. PHYSICAL EXAMINATION: BREASTS: Shows chest to be clear. The left breast was examined and was normal, had scars of previous surgery and there is scarring under the skin from that. No redness or other abnormalities. GENERAL: She is alert, cooperative and in no distress. HEAD, EYES, EARS, NOSE AND THROAT: Grossly normal. ABDOMEN: Protuberant with panniculus but in the right lower quadrant there was a discrete mass in the subcutaneous tissue that was about 3-4 cm in size. There was no ecchymoses or other problems. EXTREMITIES: Grossly normal. RECTAL: Not done. IMPRESSION: 1. Diabetes. 2. Hypertension. 3. Cancer of the left breast. 4. Mass of right abdominal wall, lower. PLAN: To excise under local anesthesia this mass to make certain of its pathology and to make sure that it is not related to the breast cancer. SHEILA RODRIGUEZ: Michelle TID: [id number] RASHEED
[2021-02-07 09:31] VITALS: BP 150/90
--- NOTE | 2021-02-07 12:07 | PDOC ---
SURGICAL PROGRESS NOTE DATE: 02/07/21 TIME: 12:06 No change in dictated H&P. Vital Signs Vital Signs Date Time Temp Pulse Resp B/P (MAP) Pulse Ox O2 Delivery O2 Flow Rate FiO2 02/07/21 09:31 72 20 98 Justicifation of Admission Dx: Justifications for Admission: Justification of Admission Dx: Yes CASH DAWKINS MD Feb 07, 2021 12:07
--- NOTE | 2021-02-07 12:11 | PDOC ---
SURGICAL PROGRESS NOTE DATE: 02/07/21 TIME: 12:08 Op Note: Surgeon....................................Gagan Pre op diag................................tumor right lower abd wall Post op diag..............................same Anesthesia................................!% lidocaine with epi Procedure.................................excision 4.5cm mass right lower abd wall Drains......................................none Blood loss.................................4cc Fluids......................................none Condition.................................satisfactory Vital Signs Vital Signs Date Time Temp Pulse Resp B/P (MAP) Pulse Ox O2 Delivery O2 Flow Rate FiO2 02/07/21 09:31 72 20 98 Justicifation of Admission Dx: Justifications for Admission: Justification of Admission Dx: Yes CASH DAWKINS MD Feb 07, 2021 12:10
--- NOTE | 2021-02-07 17:57 | OP ---
DATE OF SURGERY: 02/07/2021 SURGEON: Robert Farah MD PREOPERATIVE DIAGNOSIS: Abdominal wall tumor, right lower abdomen. POSTOPERATIVE DIAGNOSIS: Abdominal wall tumor, right lower abdomen. ANESTHESIA: 1% lidocaine with epinephrine. PROCEDURE: Excision of 4.5 cm mass in the subcutaneous tissue of the right lower abdomen. TECHNIQUE: Under general anesthesia, the patient was properly prepped and draped in a routine fashion. The lesion was palpated and marked. Transverse incision was made over the lower abdomen. The patient was obese and had a panniculus but lesion was readily palpable. We made an incision with a 15 blade about 6 cm and carried down through the skin. Lesion was about 2 or 3 cm deep to the skin in the subcutaneous area. We could palpate the margins around it that were excised, it was 6 cm. We slowly identified the mass, pulled the tissue around it using Metzenbaum scissors to slowly divide the tissue around this mass. The mass appeared to be yellow and we were finally able to deliver it and then amputated from its base. We got it completely out grossly and as stated before, the margins were 6 cm. We then inspected the area, there was no further bleeding and it had stopped with pressure. We then closed the wound using interrupted 4-0 Vicryl for the deep structures and then used a subcuticular 5-0 Vicryl for the skin. A sterile Tegaderm dressing was applied and the procedure was terminated. BLOOD LOSS: 4 mL. FLUIDS GIVEN: None. DRAINS: No drains were used and the condition of the patient is satisfactory as she has returned to the holding area. BELINDA DR: Michelle TID: [id number] RASHEED
--- NOTE | 2021-02-09 16:12 | PATHOLOGY ---
[facility] Accession Number: [id number] . 01 Material submitted: . abdomen - RIGHT ABDOMINAL WALL MASS. Modifiers: right, wall . 02 Diagnosis: Fibroadipose tissue, right abdominal wall mass: - Fat necrosis. (JPM:beto; 02/09/2021) S 02/09/2021 1404 Local . 02 Comment: There is no evidence of malignancy. (JPM:beto; 02/09/2021) . 02 Electronically signed: . Jozef Cardona MD, Pathologist NPI- [id number] . 01 Gross description: . The specimen is received in formalin, labeled "Cierra Vargas, right abdominal wall mass". Received is a segment of bright yellow, indurated lobulated tissue measuring 3.2 x 3.0 x 1.5 cm in greatest dimensions. Sectioning reveals yellow-trevino to hemorrhagic cut surfaces with fat necrosis identified. The specimen is submitted representatively in cassettes A1 and A2. ([facility]; 02/08/2021) QA/[facility] 02/08/2021 1114 Local . 02 Pathologist provided ICD-10: M79.9, R19.00 . 02 CPT . 851071 Specimen Comment: A courtesy copy of this report has been sent to [phone] Specimen Comment: [id number] Specimen Comment: Report sent to / DR GARZA Performed at: 01 [facility] [address], [place] [id number] MD Bhavin Weiss MD Phone: [phone] Performed at: 02 [facility] [address] [place], [place] [id number] MD Jozef Cardona MD Phone: [phone]
== END | disposition home or self-care (01) ==
LOC: SURG 09:01
PROVIDERS: ATTEND Specialist
DX: R19.00 Intra-abdominal and pelvic swelling, mass and lump, unspecified site (principal); M79.9 Soft tissue disorder, unspecified; I10 Essential (primary) hypertension; E11.9 Type 2 diabetes mellitus without complications; E78.00 Pure hypercholesterolemia, unspecified; E66.9 Obesity, unspecified; K21.9 Gastro-esophageal reflux disease without esophagitis; F32.9 Major depressive disorder, single episode, unspecified; Z85.3 Personal history of malignant neoplasm of breast; Z79.84 Long term (current) use of oral hypoglycemic drugs; Z79.899 Other long term (current) drug therapy; Z98.890 Other specified postprocedural states
CPT/HCPCS: 22903; 88304; J3490; Q9968